=== PATIENT | male | born 1995 | race Caucasian/White ===

== ENCOUNTER 2018-08-15 17:35 | Emergency (ER) | payer BC ==
[2018-08-15] MEDS ORDERED: NORMAL SALINE 1000 ML 1,000 ML IV ONE (17:53)
[2018-08-15] MEDS ORDERED: KETOROLAC TROMETHAMINE INJ/PF 30 MG/1 ML SDV IV ONE (17:54)
--- NOTE | 2018-08-15 17:59 | ER Document Report ---
ED Medical Screen (RME) - General Chief Complaint: Fever Stated Complaint: RASH/FEVER Time Seen by Provider: 08/15/18 17:58 TRAVEL OUTSIDE OF THE [place] IN LAST 30 DAYS: No - Related Data Allergies/Adverse Reactions: No Known Allergies Allergy (Verified 08/15/18 17:36) Past Medical History Renal/ Medical History: Denies: Hx Peritoneal Dialysis Physical Exam - Vital signs Vitals: Temp Pulse Resp BP Pulse Ox 98.4 F 93 16 136/70 H 99 08/15/18 17:40 08/15/18 17:40 08/15/18 17:40 08/15/18 17:40 08/15/18 17:40 Course - Re-evaluation Re-evalutation: 08/15/18 17:58 23-year-old man being treated for strep pharyngitis who presents for diffuse rash times 2 days of sore throat some itchiness. Gentleman has diffuse red rash likely represents scarlet fever. Do have a concern this could potentially be BV. We will administer antipyretic, will administer fluids. I have seen and evaluated this patient in rapid screening evaluation. Workup has been initiated. Further diagnostics appropriate disposition and reevaluation should be performed by a second provider in the emergency department. - Vital Signs Vital signs: Temp Pulse Resp BP Pulse Ox 98.4 F 93 16 136/70 H 99 08/15/18 17:40 08/15/18 17:40 08/15/18 17:40 08/15/18 17:40 08/15/18 17:40
[2018-08-15 18:25] LABS: ABSOLUTE EOSINOPHILS # (AUTO) 0.3 10^3/uL (0.0-0.6); ABSOLUTE LYMPHOCYTES (AUTO) 0.5 10^3/uL (0.5-4.7); ABSOLUTE MONOCYTES (AUTO) 0.7 10^3/uL (0.1-1.4); ABSOLUTE NEUT (AUTO) 4.9 10^3/uL (1.7-8.2); BASOPHILS % (AUTO) 0.2 % (0-2); EOSINOPHILS % (AUTO) 5.1 % (0-6); HEMATOCRIT 45.5 % (37.9-51.0); HEMOGLOBIN 16.2 g/dL (13.5-17.0); LYMPHOCYTES % (AUTO) 7.5 % (13-45); MEAN CORPUSCULAR HEMOGLOBIN 29.1 pg (27.0-33.4); MEAN CORPUSCULAR HGB CONC 35.5 g/dL (32.0-36.0); MEAN CORPUSCULAR VOLUME 82 fl (80-97); MONOCYTES % (AUTO) 10.5 % (3-13); PLATELET COUNT 189 10^3/uL (150-450); RED BLOOD COUNT 5.56 10^6/uL (4.35-5.55); RED CELL DISTRIBUTION WIDTH 12.7 % (11.5-14.0); SEGMENTED NEUTROPHILS % (AUTO) 76.7 % (42-78); TOTAL CELLS COUNTED % (AUTO) 100 %; WHITE BLOOD COUNT 6.4 10^3/uL (4.0-10.5)
[2018-08-15] MEDS ORDERED: DIPHENHYDRAMINE HCL 50 MG/ML VIAL IV ONE (18:38)
[2018-08-15] MEDS ORDERED: PSEUDOEPHEDRINE HCL 30 MG TABLET PO ONE (18:39)
[2018-08-15] MEDS ORDERED: METOCLOPRAMIDE HCL INJ/PF 10 MG/2 ML SDV IV ONE (18:39)
[2018-08-15 18:43] LABS: ANION GAP 10 (5-19); BLOOD UREA NITROGEN 12 mg/dL (7-20); CALCIUM 9.4 mg/dL (8.4-10.2); CARBON DIOXIDE 33 mmol/L (22-30); CHLORIDE 96 mmol/L (98-107); GLUCOSE 104 mg/dL (75-110); POTASSIUM 3.7 mmol/L (3.6-5.0); SODIUM 138.9 mmol/L (137-145)
--- NOTE | 2018-08-15 18:44 | ER Document Report ---
ED General - General Chief Complaint: Fever Stated Complaint: RASH/FEVER Time Seen by Provider: 08/15/18 17:58 Mode of Arrival: Ambulatory Information source: Patient, Parent, [facility] Records Notes: 23-year-old male with anxiety presents with a diffuse rash that started 1 day prior to arrival. Patient reports that 10 days prior to arrival he was diagnosed with strep throat and started on amoxicillin. He states his last dose was yesterday. He states that the rash developed and describes it as itching, located on his abdomen, back and upper thighs. Patient has taken penicillins in the past but mother reports that she has a severe allergy to penicillin. Patient also complaining of pressure in his forehead and face that is worse with bending forward. He admits to nasal congestion. Patient denies ear pain, difficulty swallowing, cough, chest pain, shortness of breath, abdominal pain. He states he has had some diarrhea which he is contributing to recent antibiotic use. TRAVEL OUTSIDE OF THE [place] IN LAST 30 DAYS: No - HPI Onset: Yesterday Onset/Duration: Sudden Quality of pain: Pressure Severity: Mild Associated symptoms: Nonproductive cough, Diarrhea, Headache, Rhinnorhea, Sinus pain/drainage, Sore throat. denies: Body/muscle aches, Chest pain, Productive cough, Earache, Hurts to breath, Nausea, Vomiting Exacerbated by: Other - Bending forward Relieved by: Denies Similar symptoms previously: No Recently seen / treated by doctor: Yes - Related Data Allergies/Adverse Reactions: No Known Allergies Allergy (Verified 08/15/18 17:36) Past Medical History - General Information source: Patient, [facility] Records - Social History Smoking Status: Never Smoker Frequency of alcohol use: None Drug Abuse: None Lives with: Alone Family History: None Patient has suicidal ideation: No Patient has homicidal ideation: No Renal/ Medical History: Denies: Hx Peritoneal Dialysis Psychiatric Medical History: Reports: Hx Anxiety Review of Systems - Review of Systems Notes: REVIEW OF SYSTEMS: CONSTITUTIONAL : Denies fever, Denies weight loss, recent hospitalizations. EENT: Denies visual changes, eye pain. Denies oral lesions, difficulty swallowing. CARDIOVASCULAR: Denies chest pain. Denies palpitations. Denies lower extremity edema. RESPIRATORY: Denies cough. Denies shortness of breath, wheezing. GASTROINTESTINAL: Denies abdominal pain or distention. Denies nausea, vomiting. Denies blood in vomitus, stools, or per rectum. Denies black, tarry stools. Denies constipation. GENITOURINARY: Denies difficulty urinating, painful urination, frequency, blood in urine, testicular pain or penile discharge. MUSCULOSKELETAL: Denies back or neck pain or stiffness. Denies joint pain or s welling. SKIN: Denies lesions or sores. HEMATOLOGIC : Denies easy bruising or bleeding. LYMPHATIC: Denies swollen glands. NEUROLOGICAL: Denies confusion or altered mental status. Denies loss of consciousness. Denies dizziness or lightheadedness. Denies headache. Denies weakness or paralysis. Denies problems difficulty with ambulation, slurred speech. Denies sensory loss, numbness, or tingling. Denies seizures. PSYCHIATRIC: Denies depression, suicidal ideation, or Physical Exam - Vital signs Vitals: Temp Pulse Resp BP Pulse Ox 98.4 F 93 16 136/70 H 99 08/15/18 17:40 08/15/18 17:40 08/15/18 17:40 08/15/18 17:40 08/15/18 17:40 - Notes Notes: PHYSICAL EXAMINATION: GENERAL: Well-appearing, well-nourished and in no acute distress. HEAD: Atraumatic, normocephalic. EYES: Pupils equal round and reactive to light, extraocular movements intact, s clera anicteric, conjunctiva are normal. ENT: Nares patent, 2+ tonsillar swelling without exudates, mild erythema, moist mucous membranes. Tenderness with palpation to the frontal and maxillary sinu ses. Nasal turbinates edematous. NECK: Normal range of motion, supple without lymphadenopathy LUNGS: Breath sounds clear to auscultation bilaterally and equal. No wheezes rales or rhonchi. HEART: Regular rate and rhythm without murmurs ABDOMEN: Soft, nontender, nondistended abdomen. No guarding, no rebound. No masses appreciated. Musculoskeletal: Normal range of motion, no pitting or edema. No cyanosis. NEUROLOGICAL: Cranial nerves grossly intact. Normal speech, normal gait. Normal sensory, motor exams PSYCH: Normal mood, normal affect. SKIN: Diffuse maculopapular rash on the chest, abdomen back and upper thighs. Nonvesicular, non-petechial, nonpustular. No skin sloughing. Course - Re-evaluation Re-evalutation: Laboratory 08/15/18 08/15/18 08/15/18 18:17 18:17 18:17 WBC 6.4 RBC 5.56 H Hgb 16.2 Hct 45.5 MCV 82 MCH 29.1 MCHC 35.5 RDW 12.7 Plt Count 189 Seg Neutrophils % 76.7 Lymphocytes % 7.5 L Monocytes % 10.5 Eosinophils % 5.1 Basophils % 0.2 Absolute Neutrophils 4.9 Absolute Lymphocytes 0.5 Absolute Monocytes 0.7 Absolute Eosinophils 0.3 Absolute Basophils 0.0 Sodium 138.9 Potassium 3.7 Chloride 96 L Carbon Dioxide 33 H Anion Gap 10 BUN 12 Creatinine 1.14 Est GFR ( Amer) > 60 Est GFR (Non-Af Amer) > 60 Glucose 104 Calcium 9.4 Monotest NEGATIVE 08/15/18 23:40 23-year-old male presents with complaint of rash that began yesterday. Reports that he recently finished a 10-day prescription for amoxicillin for strep throat. Patient has had penicillins in the past without this reaction. He is biggest complaint is the itching. Vital signs reviewed and within normal limits upon arrival. Patient does not appear toxic or dehydrated. He is in no acute distress. Exam is significant for a rash secondary to drug reaction. There is no sloughing of the skin, petechiae, pustules or vesicles. Patient did receive IV fluids, Benadryl and Reglan for his itching and headache. On reevaluation he states that he is feeling better. I explained that the rash would not disappear until the drug was out of his system which could take several days. CBC CMP and mono tests are within normal limits. Patient was evaluated and treated as appropriate for the patient's presenting symptoms and complaint, with consideration of any critical or life threatening conditions that may be associated with their obtained history and exam as noted above. All results were discussed with patient. Patient provided the opportunity to ask questions, and express concerns. Patient was educated on treatments based on their presumed diagnosis as noted above. At this time we will discharge the patient with return precautions and follow-up recommendations. Verbal discharge instructions given a the bedside. Medication warnings reviewed. Patient is in agreement with this plan and has verbalized understanding of return precautions. After careful consideration I feel that that patient can be safely discharged from the emergency department, they were advised to followup with a primary care physician in 2-3 days. Dictation on this chart was performed using voice recognition software and may result in unintended grammatical, spelling, syntax or errors. - Vital Signs Vital signs: Temp Pulse Resp BP Pulse Ox 97.7 F 64 15 124/69 99 08/15/18 20:47 08/15/18 20:47 08/15/18 20:47 08/15/18 20:47 08/15/18 20:47 - Laboratory Result Diagrams: 08/15/18 18:17 08/15/18 18:17 Laboratory results interpreted by me: 08/15/18 08/15/18 18:17 18:17 RBC 5.56 H Lymphocytes % 7.5 L Chloride 96 L Carbon Dioxide 33 H Discharge - Discharge Clinical Impression: Drug rash Pharyngitis Qualifiers: Pharyngitis/tonsillitis etiology: unspecified etiology Qualified Code(s): J02.9 - Acute pharyngitis, unspecified Sinusitis Qualifiers: Sinusitis location: frontal Chronicity: unspecified Qualified Code(s): J32.1 - Chronic frontal sinusitis Condition: Good Disposition: HOME, SELF-CARE Instructions: Acute Allergic Reaction to Drugs ([facility]), Sinusitis ([facility]), Sore Throat ([facility]) Additional Instructions: Your rash appears to be related to amoxicillin. Please inform further healthcare providers that you are allergic to penicillins. You can take Benadryl for the itching but the rash will not disappear until the drug is out of your system. Your mono test here was negative. Please take Sudafed as needed for your sinusitis. Follow up with your [id number] hours for further care or return to the ED IMMEDIATELY if symptoms worsen or you have any concerns. If you cannot afford to follow up with your primary care physician a list of low cost clinics have been provided at the end of your discharge papers as well. Most prescribed medications have multiple side effects. The safest thing to do is when filling your prescription speak to your pharmacist regarding possible interactions with your normal home medications and over the counter medications such as Ibuprofen, Tylenol, Benadryl. If you experience any symptoms that cause you discomfort or concern you should discontinue the medication immediately and return to the emergency room or call your primary care physician. Forms: Elevated Blood Pressure
[2018-08-15 20:48] VITALS: BP 124/69
== END 2018-08-15 20:54 | disposition home or self-care (01) ==
LOC: ER 17:35
DX: J32.1 Chronic frontal sinusitis (principal); J02.9 Acute pharyngitis, unspecified; L27.1 Localized skin eruption due to drugs and medicaments taken internally; T36.0X5A Adverse effect of penicillins, initial encounter; R50.9 Fever, unspecified; X58.XXXA Exposure to other specified factors, initial encounter
CPT/HCPCS: 99283; 96361; 96374; 96375; 36415; 85025; 86308; 80048; J1200; J1885; J2765; J7030

== ENCOUNTER 2018-11-20 13:04 | Emergency (ER) | payer BC ==
[2018-11-20] MEDS ORDERED: LIDOCAINE 5% (700 MG) TRANSDERMAL ADH..PATCH TP ONE (14:37)
[2018-11-20] MEDS ORDERED: KETOROLAC TROMETHAMINE 60 MG/2 ML SDV IM ONE (14:37)
[2018-11-20] MEDS ORDERED: DEXAMETHASONE SOD PHOS INJ 10 MG/1 ML VIAL IM ONE (14:37)
--- NOTE | 2018-11-20 14:37 | ER Document Report ---
ED Neck/Back Problem - General Chief Complaint: Back Pain Stated Complaint: LOW BACK PAIN, NECK STIFFNESS Time Seen by Provider: 11/20/18 14:21 Primary Care Provider: [facility] [Provider Group] - Follow up as needed Mode of Arrival: Ambulatory Information source: Patient Notes: 23-year-old male presents to ED for complaint of low back pain with pain radiating down his left leg. He states he has had the pain off and on for a year but it got worse this morning when he tried to get up. He states he was not able to get up and walk to go to work today. 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 Patient is alert oriented respirations are regular and unlabored speaks in full sentences. He do es have point tenderness to the lumbar sacral area as well as the left buttocks. Bowel bladder, loss saddle anesthesia, loss of control or sensation to the lower extremities. TRAVEL OUTSIDE OF THE [place] IN LAST 30 DAYS: No - HPI Patient complains to provider of: Pain, Lower back Onset: Other - More than a year Onset: Chronic Timing: Still present, Worse Quality of pain: Sharp, Stabbing, Throbbing Severity: Severe Pain Level: 5 Context: Turning Recent injury: No Associated symptoms: Like prior neck/back pain, Radiation to leg, Lower back pain Exacerbated by: Movement of trunk, Sitting position Relieved by: Nothing Similar symptoms previously: Yes Recently seen / treated by doctor: No - Related Data Allergies/Adverse Reactions: No Known Allergies Allergy (Verified 08/15/18 17:36) Past Medical History - General Information source: Patient - Social History Smoking Status: Never Smoker Frequency of alcohol use: None Drug Abuse: None Lives with: Alone Family History: Reviewed & Not Pertinent Patient has suicidal ideation: No Patient has homicidal ideation: No - Past Medical History Cardiac Medical History: Reports: None Pulmonary Medical History: Reports: None EENT Medical History: Reports: None Neurological Medical History: Reports: None Endocrine Medical History: Reports: None Renal/ Medical History: Reports: None Malignancy Medical History: Reports None GI Medical History: Reports: None Musculoskeletal Medical History: Reports Hx Musculoskeletal Deformity, Reports Hx Musculoskeletal Trauma Skin Medical History: Reports None Psychiatric Medical History: Reports: Hx Anxiety Traumatic Medical History: Reports: None Infectious Medical History: Reports: None Surgical Hx: Negative Past Surgical History: Reports: None Review of Systems - Review of Systems Constitutional: No symptoms reported EENT: No symptoms reported Cardiovascular: No symptoms reported Respiratory: No symptoms reported Gastrointestinal: No symptoms reported Genitourinary: No symptoms reported Male Genitourinary: No symptoms reported Musculoskeletal: Back pain, Muscle pain, Muscle stiffness Skin: No symptoms reported Hematologic/Lymphatic: No symptoms reported Neurological/Psychological: No symptoms reported -: Yes All other systems reviewed and negative Physical Exam - Vital signs Vitals: Temp Pulse Resp BP Pulse Ox 97.7 F 76 14 154/74 H 100 11/20/18 13:22 11/20/18 13:22 11/20/18 13:22 11/20/18 13:22 11/20/18 13:22 Interpretation: Normal - General General appearance: Appears well, Alert - HEENT Head: Normocephalic, Atraumatic Eyes: Normal Pupils: PERRL - Respiratory Respiratory status: No respiratory distress Chest status: Nontender Breath sounds: Normal Chest palpation: Normal - Cardiovascular Rhythm: Regular Heart sounds: Normal auscultation Murmur: No - Abdominal Inspection: Normal Distension: No distension Bowel sounds: Normal Tenderness: Nontender Organomegaly: No organomegaly - Back Back: Normal, Tender, Vertebra tenderness Notes: Denies signs or symptoms of cauda equina, no saddle anesthesia, no loss of control of bowel or bladder, no loss of control or sensation to lower extremities. This is a chronic problem that got much worse this morning when he tried to wake up to the bathroom. - Extremities General upper extremity: Normal inspection, Nontender, Normal color, Normal ROM, Normal temperature General lower extremity: Normal inspection, Nontender, Normal color, Normal ROM, Normal temperature, Normal weight bearing. No: Martha's sign - Neurological Neuro grossly intact: Yes Cognition: Normal Orientation: AAOx4 Nic Coma Scale Eye Opening: Spontaneous [place] Coma Scale Verbal: Oriented [place] Coma Scale Motor: Obeys Commands Nic Coma Scale Total: 15 Speech: Normal Cranial nerves: Normal Cerebellar coordination: Normal Motor strength normal: LUE, RUE, LLE, RLE Additional motor exam normals: Equal debt and budget counselor Babinski reflex: Normal (flexor plantar) Sensory: Normal Biceps - Reflex grade: 2 = Normal Triceps - Reflex grade: 2 = Normal Brachioradialis - Reflex grade: 2 = Normal Knee - Reflex grade: 2 = Normal Ankle - Reflex grade: 2 = Normal - Psychological Associated symptoms: Normal affect, Normal mood - Skin Skin Temperature: Warm Skin Moisture: Dry Skin Color: Normal Course - Re-evaluation Re-evalutation: 11/20/18 15:53 After performing a Medical Screening Examination, I estimate there is LOW risk for EXPANDING OR RUPTURED ABDOMINAL AORTIC ANEURYSM, CAUDA EQUINA SYNDROME, EPIDURAL MASS LESION, or HERNIATED DISK CAUSING SEVERE SPINAL STENOSIS, thus I consider the discharge disposition reasonable. I have reevaluated this patient multiple times and no significant life threatening changes are noted. The patient and I have discussed the diagnosis and risks, and we agree with discharging home and close follow-up. We also discussed returning to the Emergency Department immediately if new or worsening symptoms occur with the understanding that symptoms and presentations can change. We have discussed the symptoms which are most concerning (e.g., saddle anesthesia, urinary or bowel incontinence or retention, changing or worsening pain) that necessitate immediate return. - Vital Signs Vital signs: Temp Pulse Resp BP Pulse Ox 97.9 F 65 18 138/79 H 99 11/20/18 16:08 11/20/18 16:08 11/20/18 16:08 11/20/18 16:08 11/20/18 16:08 - Diagnostic Test Radiology reviewed: Image reviewed, Reports reviewed Discharge - Discharge Clinical Impression: Back pain Qualifiers: Back pain location: low back pain Chronicity: chronic Back pain laterality: right Sciatica presence: with sciatica Sciatica laterality: sciatica of right side Qualified Code(s): M54.41 - Lumbago with sciatica, right side Condition: Stable Disposition: HOME, SELF-CARE Additional Instructions: Chronic Back Pain Chronic back pain (pain persisting longer than three months) is a common problem. A medical evaluation can look for herniated disc, arthritis, osteoporosis, tumors, and infections. But at least half the time, there's no obvious treatable cause. Anxiety and depression tend to worsen back pain. Ibuprofen or other anti-inflammatory medicine can help. A heating pad, used for 15-20 minutes at a time, can ease pain. For this type of back pain, narcotic medicines should be avoided. Muscle relaxers are rarely helpful unless you're having spasms. Activity is important. Find an aerobic exercise program that your back can tolerate. Too much rest makes back pain worse. Specific back exercises are usually prescribed to strengthen the back and abdominal muscles. Often, a physical therapist can help. Avoid heavy lifting, working while bent over, or standing with both knees straight. Most back pain patients do better with a firm mattress. If new symptoms of a "herniated disc" (radiation of pain, numbness, or tingling down the back of the leg or weakness in the leg) occur, you should be re-examined. MUSCLE RELAXERS: Muscle relaxing medications are usually prescribed for acute muscle spasm or injury to the neck and back. They are often combined with antiinflammatory pain medication for increased relief. You may stop the muscle relaxer when the pain and stiffness have improved. Start the medication again if spasms recur. Muscle relaxers may cause drowsiness, especially with the first dose. Do not operate machinery or drive while under the effects of the medication. Most muscle relaxers last up to 24 hours. Do not combine the medication with alcohol. ICE PACKS: Apply ice packs frequently against the painful area. Many different schedules are recommended, such as "20 minutes on, 20 minutes off" or "one hour ice, two hours rest." If you need to work, you may need to go longer between ice treatments. You should plan to have the area ice packed AT LEAST one fourth of the time. The ice should be applied over the wrap, tape, or splint, or over a layer of cloth -- not directly against the skin. Some ice bags have a built-in cloth and can be put directly on the skin. WARM PACKS: After approximately two days, apply gentle heat (such as a heating pad or hot water bottle) for about 20 to 30 minutes about every two hours -- at least four times daily. Warmth and elevation will help you make a more rapid recovery, and will ease the pain considerably. Do not use HOT heat, and never apply heat for longer than 30 minutes. The continuous heat can invisibly damage skin and muscles -- even when no burn is seen on the surface. Damaged muscles can make you MORE sore. Toradol Injection You have been given an injection of ketorolac tromethamine (Toradol). This is an excellent, safe drug for pain control. It also has potent antiinflammatory action. You should have significant pain relief within about one hour. Toradol is not addicting and is non-sedating. It does not interfere with driving or work. Call or return if you develop itching, hives, shortness of breath, or rash. STEROID MEDICATION: You have been given a medicine of the cortisone/steroid class. This medication is used to control inflammation or allergy. It is usually only given for a short period of time, until the acute process subsides. There are usually no side effects from short-term use of cortisone-like medications. Some persons feel an increased sense of well-being and are not sleepy at bedtime. Long-term use of cortisone medications is best avoided, unless required for a severe condition. If your condition does not remit, or relapses after the course of corticosteroid medication, you should consult your physician. Stretching Exercises for the Back The physician has recommended that you begin stretching exercises for your back. These are often used even while the back is painful. However, you should notify the physician if the activities seem to increase your pain. PELVIC TILT: Lie flat on your back with knees bent. Tighten your stomach and buttock muscles so it flattens your lower back against the floor. Hold 10 seconds. Repeat 10 times, twice daily. KNEE RAISE: Lying on the back with knees bent, raise one knee to your chest, then the other. Hold both knees against the chest 10 seconds, then lower one knee at a time. Repeat 10 times, twice daily. PARTIAL TRUNK RAISE: Lie face down, arms at your sides. Keeping your waist on the floor, use your arms raise your chest up. Support yourself on your elbows for 30 seconds. Repeat twice daily, increasing the time to two minutes as you recover. Lidoderm patch has been applied to your back for the pain. This needs to be removed 12 hours from when it was placed. You can use [id number] Lidoderm patches or use Aspercreme lidocaine cream to the area. If you would prefer IcyHot that is okay. FOLLOW-UP CARE: If you have been referred to a physician for follow-up care, call the physicians office for an appointment as you were instructed or within the next two days. If you experience worsening or a significant change in your symptoms, notify the physician immediately or return to the Emergency Department at any time for re-evaluation. Prescriptions: Cyclobenzaprine HCl [Flexeril 10 mg Tablet] 10 mg PO TIDP PRN #15 tab PRN Reason: Forms: Elevated Blood Pressure, Return to Work Referrals: [facility] [Provider Group] - Follow up as needed
--- NOTE | 2018-11-20 15:22 | RADIOLOGY REPORT (SQ) ---
EXAM DESCRIPTION: L SPINE WHOLE COMPLETED DATE/TIME: 11/20/2018 3:14 pm REASON FOR STUDY: pain radiating down right leg COMPARISON: None. NUMBER OF VIEWS: Five views including obliques. TECHNIQUE: AP, lateral, oblique, and sacral radiographic images acquired of the lumbar spine. LIMITATIONS: None. FINDINGS: MINERALIZATION: Normal. SEGMENTATION: Normal. No transitional anatomy. ALIGNMENT: Normal. VERTEBRAE: Maintained height. No fracture or worrisome bone lesion. DISCS: Preserved height. No significant osteophytes or end plate irregularity. POSTERIOR ELEMENTS: Pedicles and facets are intact. No pars defect or posterior arch defects. HARDWARE: None in the spine. PARASPINAL SOFT TISSUES: Normal. PELVIS: Intact as visualized. No fractures or worrisome bone lesions. SI joints intact. OTHER: No other significant finding. IMPRESSION: NORMAL 5 VIEW LUMBAR SPINE. TECHNICAL DOCUMENTATION: JOB ID: [id number] [employer]- All Rights Reserved Reading location - IP/workstation name: [email or web address]
[2018-11-20 16:11] VITALS: BP 138/79
== END 2018-11-20 16:11 | disposition home or self-care (01) ==
LOC: ER 13:04
DX: M54.41 Lumbago with sciatica, right side (principal); G89.29 Other chronic pain
CPT/HCPCS: 99283; 96372; 72110; J1885; J1100

== ENCOUNTER 2020-03-03 00:06 | Emergency (ER) | payer SELFPAY ==
[2020-03-03] MEDS ORDERED: ONDANSETRON HCL INJ/PF 4 MG/2 ML SDV IV ONE ×2 (00:18→05:43)
[2020-03-03] MEDS ORDERED: NORMAL SALINE 1000 ML 1,000 ML IV ONE (00:18)
[2020-03-03 00:34] LABS: ABSOLUTE BASOPHILS # (AUTO) 0.1 10^3/uL (0.0-0.2); ABSOLUTE EOSINOPHILS # (AUTO) 0.5 10^3/uL (0.0-0.6); ABSOLUTE LYMPHOCYTES (AUTO) 1.7 10^3/uL (0.5-4.7); ABSOLUTE MONOCYTES (AUTO) 0.9 10^3/uL (0.1-1.4); ABSOLUTE NEUT (AUTO) 7.8 10^3/uL (1.7-8.2); BASOPHILS % (AUTO) 0.7 % (0-2); EOSINOPHILS % (AUTO) 4.6 % (0-6); HEMATOCRIT 43.9 % (37.9-51.0); HEMOGLOBIN 14.9 g/dL (13.5-17.0); LYMPHOCYTES % (AUTO) 15.6 % (13-45); MEAN CORPUSCULAR HEMOGLOBIN 27.6 pg (27.0-33.4); MEAN CORPUSCULAR VOLUME 81 fl (80-97); MONOCYTES % (AUTO) 7.8 % (3-13); PLATELET COUNT 271 10^3/uL (150-450); RED CELL DISTRIBUTION WIDTH 13.4 % (11.5-14.0); SEGMENTED NEUTROPHILS % (AUTO) 71.3 % (42-78); TOTAL CELLS COUNTED % (AUTO) 100 %; WHITE BLOOD COUNT 10.9 10^3/uL (4.0-10.5)
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
[2020-03-03 01:15] LABS: ACETAMINOPHEN 66 ug/mL (10-30); ALBUMIN 4.8 g/dL (3.5-5.0); ALKALINE PHOSPHATASE 101 U/L (38-126); ANION GAP 9 (5-19); ASPARTATE AMINO TRANSFERASE 30 U/L (17-59); BILIRUBIN,DIRECT 0.1 mg/dL (0.0-0.4); BILIRUBIN,TOTAL 1.1 mg/dL (0.2-1.3); BLOOD UREA NITROGEN 14 mg/dL (7-20); CALCIUM 9.8 mg/dL (8.4-10.2); CARBON DIOXIDE 25 mmol/L (22-30); CHLORIDE 105 mmol/L (98-107); GLUCOSE 120 mg/dL (75-110); TOTAL PROTEIN 7.8 g/dL (6.3-8.2)
[2020-03-03 01:16] LABS: ALCOHOL < 10 mg/dL (NONE DETECTED); POTASSIUM 3.7 mmol/L (3.6-5.0); SALICYLATE < 1.0 mg/dL (2.0-20.0)
[2020-03-03 01:23] LABS: INTERNATIONAL RATION (INR) 0.99; PROTHROMBIN TIME 13.1 SEC (11.4-15.4)
[2020-03-03] MEDS ORDERED: NORMAL SALINE 1000 ML 1,000 ML IV PRN (03:10)
[2020-03-03] MEDS: NORMAL SALINE 1000 ML 1,000 ML IV PRN ×2 (05:49→06:51)
--- NOTE | 2020-03-03 06:23 | EKG REPORT ---
SEVERITY:- OTHERWISE NORMAL ECG - SINUS BRADYCARDIA : Confirmed by: Hola Beauchamp MD 03-Mar-2020 06:22:36
[2020-03-03 07:11] LABS: APPEARANCE,URINE CLEAR; BILIRUBIN,URINE NEGATIVE (NEGATIVE); COLOR,URINE YELLOW; GLUCOSE, URINE NEGATIVE (NEGATIVE); KETONES,URINE 20 mg/dL (NEGATIVE); LEUKOCYTE ESTERASE,URINE NEGATIVE (NEGATIVE); NITRITE,URINE NEGATIVE (NEGATIVE); PROTEIN,URINE NEGATIVE (NEGATIVE); URINE SPECIFIC GRAVITY 1.041; UROBILINOGEN,URINE NEGATIVE mg/dL (<2.0)
[2020-03-03 07:26] LABS: URINE AMPHETAMINES SCREEN NEGATIVE; URINE BARBITURATES SCREEN NEGATIVE; URINE METHADONE SCREEN NEGATIVE; URINE PHENCYCLIDINE SCREEN NEGATIVE
[2020-03-03 07:29] LABS: URINE BENZODIAZEPINES SCREEN UNCONFIRMED POSITIVE; URINE COCAINE SCREEN UNCONFIRMED POSITIVE; URINE MARIJUANA (THC) SCREEN UNCONFIRMED POSITIVE
--- NOTE | 2020-03-03 11:21 | PSYCHOLOGICAL NOTE ---
Psych Note - Psych Note Date seen by psych provider: 03/03/20 Time seen by psych provider: 10:25 Psych Note: Impression/Plan: Patient is recommended for IVC. He intentionally overdosed on Tylenol. He reports he was tired of living with the pain in his knee, back, and neck. Dr. Estrada was consulted on the care and management of this patient; attending physician is in agreement with recommendations and disposition.
--- NOTE | 2020-03-03 12:50 | ER Document Report ---
Doctor's Note Notes: 03/03/20 12:49 Call was placed to poison control spoke with Irma to confirm that the Tylenol level that was drawn at 4 AM does not need to be treated. This was requested by [facility] for [facility] confirmed that patient is medically clear. Patient is at this time medically clear. Juan Francisco was notified of this. 03/03/20 17:36 Patient was seen and evaluated he is resting comfortably. He offers no complaints or concerns at this time. Denies any current suicidal homicidal ideation.
[2020-03-04] MEDS ORDERED: HALOPERIDOL 5 MG TABLET PO ONE (01:43)
--- NOTE | 2020-03-04 01:44 | ER Document Report ---
Doctor's Note Notes: 03/04/20 01:43 Patient states that he is anxious. He told the nurse that he wanted to "get out of here." States that he does not feel suicidal. Patient does state that he is anxious. We will give the patient 5 mg of Haldol p.o. and reevaluate. 03/04/20 03:15 I spoke to the nurse and she informed me that the patient was still anxious about getting out. I sat down and talk with with the patient and he stated that he had chronic back pain. Will order him Robaxin. 03/04/20 04:45 Primary nurse reported to me that the patient was resting comfortably and was able to sleep since his back pain was addressed.
[2020-03-04] MEDS ORDERED: METHOCARBAMOL 500 MG TABLET PO ONE (03:19)
--- NOTE | 2020-03-04 13:42 | ER Document Report ---
Doctor's Note Notes: 03/04/20 13:41 Patient is resting comfortably no acute distress at this time. Denies any suicidal homicidal ideation. No complaints. Placement still pending.
[2020-03-04] MEDS ORDERED: METHOCARBAMOL 500 MG TABLET PO PRN (13:43)
[2020-03-04] MEDS ORDERED: ZIPRASIDONE MESYLATE INJ/PF 20 MG SDV IM ONE (19:57)
[2020-03-04] MEDS ORDERED: LORAZEPAM INJ 2 MG/1 ML VIAL IM ONE (19:58)
--- NOTE | 2020-03-04 21:27 | PSYCHOLOGICAL NOTE ---
Psych Note - Psych Note Date seen by psych provider: 03/04/20 Psych Note: Medication recommendation per [facility]'s contracted psychiatrist Dr Jon BETANCOURT are as follows Zyprexa 2.5mg twice daily Impression/Plan: Patient is recommended to continue under IVC. Dr. Estrada was consulted on the care and management of this patient; attending physician is in agreements with recommendations and disposition.
[2020-03-05] MEDS: OLANZAPINE 2.5 MG TABLET PO SCH ×2 (00:06→10:33)
[2020-03-05 11:05] VITALS: BP 140/85
--- NOTE | 2020-03-05 14:01 | ER Document Report ---
Doctor's Note Notes: 03/05/20 13:59 Patient is alert and oriented x3. He is resting comfortably no acute distress. Patient aware that he is being discharged home with a two-week prescription for Zyprexa. Follow-up as discussed. Return for any new or worsening symptoms. Discharge - Discharge Clinical Impression: Suicide attempt, Drug abuse Condition: Stable Disposition: HOME, SELF-CARE Additional Instructions: You have been evaluated both medical and behavioral health teams have been deemed appropriate for discharge. You have been started on Zyprexa 2.5 mg twice daily; please take as directed. You are recommended to follow-up with an outpatient mental health provider for both medication management and therapeutic services. You have been provided local resource list of area providers including mobile crisis contact information. Please follow-up with your chosen outpatient mental health provider within 3 to 5 days. DEPRESSION: Your evaluation reveals that you have mental depression. While symptoms may be vague, they often include disturbance of sleep, fatigue, loss of appetite, and general loss of interest in life. While depression may be a side effect of drugs, or a reaction to a major change in your life, many cases have no known cause. If depression is acute, and related to a major loss in your life, you can expect it to clear completely with time. If you have been depressed a long time, are prone to repeated bouts of depression or low mood, or have been thinking of suicide, get help. Depression can be treated with anti-depressant medication and counselling. Long-term depression will often take a few weeks to clear, even with appropriate medication. Follow-up care is important. SUICIDAL IDEATION: Suicidal ideation is a common medical term for thoughts about suicide, which may be as detailed as a formulated plan, without the suicidal act itself. Although most people who undergo suicidal ideation do not commit suicide, some go on to make suicide attempts. The range of suicidal ideation varies greatly from fleeting to detailed planning, role playing, and unsuccessful attempts. While thoughts about suicide are common, most people do not carry out serious actions to commit suicide. Based upon your evaluation and discussion with you, we do not believe you are currently at risk to act upon your thoughts of suicide. You have agreed to return to the Emergency Department, at any time, if you feel inclined to act upon your suicidal thoughts. COCAINE ABUSE: Cocaine causes many dangerous medical problems. Problems can occur even with "usual" amounts. Cocaine affects judgement, creating a sense of invulnerability. Cocaine users often make bad decisions that seem "great" at the time. Most cocaine users eventually will be hurt by bad job performance, damaged personal relations, crime, and unsafe sexual practices. Toxic effects of cocaine can include seizures, hallucinations, delusions, high blood pressure, heart damage, or sudden . There's always the risk of a "bad batch." But heart attacks, brain hemorrhages, or cardiac arrest can occur unpredictably even with "normal" use. Injection of cocaine is risky for abscesses, endocarditis (heart infection), pneumonia, and AIDS. Withdrawal from cocaine often causes anxiety and drug cravings. Some users become paranoid and psychotic. Many treatment programs are available, but you must make the decision to quit. Medication can be prescribed to control the symptoms of cocaine toxicity (beta blockers or benzodiazepines). Withdrawal symptoms may require tranquilizers. FOLLOW-UP CARE: If you have been referred to a physician for follow-up care, call the physicians office for an appointment as you were instructed or within the next two days. If you experience worsening or a significant change in your symptoms, notify the physician immediately or return to the Emergency Department at any time for re-evaluation. Prescriptions: Olanzapine [Zyprexa 2.5 Mg Tablet] 2.5 mg PO BID #28 tablet Referrals: [facility] [Outside] - Follow up as needed [facility] [Outside] - Follow up as needed
== END 2020-03-05 15:15 | disposition home or self-care (01) ==
LOC: ER 00:06
DX: T39.1X2A Poisoning by 4-Aminophenol derivatives, intentional self-harm, initial encounter (principal); F19.10 Other psychoactive substance abuse, uncomplicated; X83.8XXA Intentional self-harm by other specified means, initial encounter; F17.200 Nicotine dependence, unspecified, uncomplicated; R11.2 Nausea with vomiting, unspecified; R10.9 Unspecified abdominal pain; G89.29 Other chronic pain; M25.561 Pain in right knee
CPT/HCPCS: 93005; 96376; 99285; 96372; 96361; 96374; 96375; 36415; 80307 ×4; 85025; 85610; 80053; 81001; 93010; J3490; J2060; J3486; J2405; J7030